=== PATIENT | female | born 1960 | race Caucasian/White ===

== ENCOUNTER → 2017-05-07 | Outpatient (CLI) | payer BC | END | disposition home or self-care (01) | LOC: MAMMO 17:03 | DX: Z12.31 Encounter for screening mammogram for malignant neoplasm of breast (principal) ==

== ENCOUNTER → 2017-05-08 | Outpatient (CLI) | payer BC ==
[2017-05-08 12:26] LABS: BASO # 0.1 10*3/uL (0.0-0.1); BASO % 0.6 % (0.0-1.0); EOS # 0.2 10*3/uL (0.0-0.4); EOS % 1.7 % (1.0-4.0); HEMOGLOBIN 13.4 g/dl (12.0-16.0); LYMPH # 4.5 10*3/uL (1.3-4.4); LYMPH % 51.4 % (27.0-41.0); MEAN CELL VOLUME 97.3 fl (81.0-99.0); MEAN CORPUSCULAR HGB 32.6 pg (27.0-31.0); MEAN CORPUSCULAR HGB CONC 33.5 g/dl (33.0-37.0); MEAN PLATELET VOLUME 9.6 fl (9.6-12.3); MONO # 0.6 10*3/uL (0.1-1.0); MONO % 7.3 % (3.0-9.0); NEUT # 3.4 10*3/uL (2.3-7.9); NEUT % 38.8 % (47.0-73.0); PLATELET COUNT AUTOMATED 335 10*3/uL (130-400); RED BLOOD COUNT 4.11 10*6/uL (4.10-5.10); RED CELL DISTRI WIDTH 12.8 % (0-14.5); WHITE BLOOD COUNT 8.8 10*3/uL (4.8-10.8)
[2017-05-08 13:01] LABS: ALBUMIN 3.7 gm/dl (3.1-4.5); ALKALINE PHOSPHATASE 64 U/L (45-117); BUN 12 mg/dl (7-24); CHLORIDE 103 mmol/L (98-107); CHOLESTEROL 204 mg/dL (<200); CREATININE 0.71 mg/dL (0.55-1.02); HDL CHOLESTEROL 74 mg/dl (40-60); LDL CHOLESTEROL 121 mg/dL (9-159); POTASSIUM 4.3 mmol/L (3.5-5.1); SGOT/AST 18 IU/L (3-35); SGPT/ALT 16 U/L (12-78); SODIUM 138 mmol/L (136-145); TOTAL PROTEIN 7.1 gm/dL (6.4-8.2); TRIGLYCERIDES 47 mg/dl (<150); VLDL CHOLESTEROL 9 mg/dL (6-40)
== END | disposition home or self-care (01) ==
LOC: LAB 11:49
PROVIDERS: Nurse Practitioner Family
DX: F41.9 Anxiety disorder, unspecified (principal); R63.4 Abnormal weight loss; R79.89 Other specified abnormal findings of blood chemistry

== ENCOUNTER → 2017-06-19 | Day surgery (SDC) | payer OTHER, BC ==
[~2017-06-19] VITALS: Ht 157.4 cm; Wt 55.8 kg
[~2017-06-19] MED LIST: VALIUM5 MG PO
--- NOTE | ~2017-06-19 | O ---
[place], [place] OPERATIVE NOTE NAME: YOON CABEZAS UNIT #: [id number] ROOM: DOCTOR: POOJA LEMUS,RIVER BIRTHDATE: [birth year] DOS: 06/19/2017 GASTROENDOSCOPIC REPORT HISTORY: A 57-year-old patient who has presented for colonic screening without any symptomatology. ALLERGIES: No known medication. FAMILY HISTORY: Noncontributory. PAST SURGICAL HISTORY: Splenectomy for ITP; oophorectomy; hysterectomy, partial. PAST MEDICAL HISTORY: Otherwise, ITP and unremarkable. SOCIAL HISTORY: Nonsmoker and social alcohol consumer. PROCEDURE: Today's procedure part of investigation is colonoscopy plus 2 snare polypectomy and tattoo markings. PREMEDICATION: Versed and Diprivan. SCOPE: Olympus forward-viewing colonoscope 10L video. REPORT: After putting the patient in the left lateral position and after application of lubricant to the scope, the scope was introduced. Thereafter, under direct visualization, I advanced through the length of colon without difficulty. Two polypoid lesions, 1 at 18 cm, very large and pundular and another one at the sigmoid colon, flat, polypoid lesion was identified. Both were removed with a snare polypectomy. Deep mucosal resection and coagulation had been undertaken. Both sides had been tattoo fidencio for future reference and in case surgical need. Base of the cecum explored, appendiceal orifice identified, and ileocecal valve was defined. Photographic series of the appendix was obtained. The patient was gradually extubated and tolerated the procedure well. IMPRESSION: 1. Large pundular, polypoid lesion at 18 cm in higher rectal pouch, with deep infiltration of the stalk. 2. Flat polypoid lesion at sigmoid colon, status post snare polypectomy and tattoo marking of both sites. PLAN AND DISCUSSION: We are awaiting pathology report and clinical reassessment after the data is available to us. Photographic series have been obtained, attached to the chart for future reference. I thank you very much indeed Ms. Jaimee Diane for your kind referral. This procedure definitely has been lifesaving for this particular patient with a negative symptomatology and negative family history of colonic carcinoma and we [place], [place] OPERATIVE NOTE NAME: YOON CABEZAS UNIT #: [id number] ROOM: DOCTOR: POOJA LEMUS,RIVER BIRTHDATE: 64 definitively are nervous about the pathology of pundular polyp at high rectal pouch result and should it come back positive with carcinoma, then she requires sigmoid segmental resection. I thank you again. RIVER PATTON MD CM:OPRECORD:OPERATIVE NOTE [id number] RIVER PATTON MD 06/19/17 1521 interface
[2017-06-19 09:34] VITALS: BP 121/77
[2017-06-19 10:57] VITALS: BP 121/77
[2017-06-19 11:01] VITALS: BP 95/55
[2017-06-19 11:12] VITALS: BP 95/55
== END | disposition home or self-care (01) ==
LOC: SDC 06-13 09:30
DX: Z12.11 Encounter for screening for malignant neoplasm of colon (principal); Z90.710 Acquired absence of both cervix and uterus; D12.5 Benign neoplasm of sigmoid colon; D12.8 Benign neoplasm of rectum; F17.200 Nicotine dependence, unspecified, uncomplicated

== ENCOUNTER → 2019-10-28 | Outpatient (CLI) | payer OTHER | END | disposition home or self-care (01) | LOC: MAMMO 14:10 | DX: Z12.31 Encounter for screening mammogram for malignant neoplasm of breast (principal) ==

== ENCOUNTER 2025-02-22 09:52 | Emergency (ER) | payer OTHER ==
[~2025-02-22] VITALS: Ht 157.4 cm; Wt 54.4 kg
[2025-02-22] MEDS ORDERED: Lidocaine Hydrochloride 30 ML VIAL IJ ONE (10:10)
[2025-02-22] MEDS ORDERED: Lidocaine Hydrochloride 0 ML IV ONE (10:44)
[2025-02-22] MEDS ORDERED: Lidocaine Hydrochloride 5 ML AMP ONE (10:45)
[2025-02-22] MEDS ORDERED: CEPHALEXIN500 M1 PO (10:55)
== END 2025-02-22 11:07 | disposition home or self-care (01) ==
LOC: ED 09:52
DX: S61.210A Laceration without foreign body of right index finger without damage to nail, initial encounter (principal); Z79.899 Other long term (current) drug therapy; Z90.89 Acquired absence of other organs; W26.8XXA Contact with other sharp object(s), not elsewhere classified, initial encounter; W45.8XXA Other foreign body or object entering through skin, initial encounter; Y93.89 Activity, other specified; Y92.89 Other specified places as the place of occurrence of the external cause; Y99.8 Other external cause status